=== PATIENT | male | born 1955 | race Caucasian/White ===

== ENCOUNTER 2020-02-21 11:30 | Inpatient (IN) | payer MEDICARE, OTHER ==
[2020-02-21 13:13] VITALS: BMI 25.8
[2020-02-22] MEDS ORDERED: Heparin 1,000 UNITS/ML VIAL ONE (09:01)
[2020-02-22] MEDS ORDERED: HYDROcodone/Acetaminophen 10/325 mg Tablet PO PRN (09:55)
[2020-02-22] MEDS ORDERED: Phenylephrine 10 MG/ML VIAL ONE (10:06)
[2020-02-22] MEDS ORDERED: Fentanyl 100 MCG/2 ML VIAL ONE ×4 (10:06→12:15)
[2020-02-22] MEDS ORDERED: Sodium Chloride 0.9% 100 ML ONE (11:20)
[2020-02-22] MEDS ORDERED: Piperacillin/Tazobactam 3.375 GM VIAL ONE (11:20)
[2020-02-22] MEDS ORDERED: Ondansetron HCl/PF 4 MG/2 ML Vial IVP PRN (11:22)
[2020-02-22] MEDS ORDERED: Promethazine HCl 25 MG/ML VIAL SLOW IVP PRN (11:22)
[2020-02-22] MEDS ORDERED: Promethazine HCl 25 MG/ML VIAL IM PRN (11:22)
[2020-02-22] MEDS ORDERED: Promethazine HCl 25 MG/ML VIAL ONE (11:24)
--- NOTE | 2020-02-22 12:58 | OP ---
DATE OF PROCEDURE: 02/22/2020 PREOPERATIVE DIAGNOSIS: Right knee septic arthritis. POSTOPERATIVE DIAGNOSIS: Right knee septic arthritis. PROCEDURE PERFORMED: Lateral parapatellar arthrotomy with irrigation, debridement and open packing. SURGEON: Erasmo Sutherland MD PRODUCTION CONTROL EXPERT: Abhilash Irby PA-C ANESTHESIA: General via LMA. TOURNIQUET TIME: 10 minutes at 300 mmHg. FINDINGS: Purulent opaque fluid with a negative string sign, aspirated with approximately 50 more mL, removed via arthrotomy and purulent drainage, a maroon-colored aspirate. INDICATIONS FOR PROCEDURE: Mark is a 64-year-old male, who was seen in multiple emergency rooms within the last week or so for right knee pain and fever. He was seen in the clinic yesterday by Dr. Sutherland and an arthrocentesis was performed, which demonstrated purulent material and an aspirate highly suspicious of septic arthritis. Therefore, he was admitted this morning n.p.o. for a formal arthrotomy, irrigation and debridement. His aspirate demonstrated nearly 50,000 white blood cells. The patient has a history of diabetes and illicit drug abuse. DESCRIPTION OF PROCEDURE: After informed consent was obtained in the preoperative holding area, the patient was taken to the operative suite where general anesthesia was induced, and LMA was placed and secured. The right knee was then positioned appropriately in a supine position. The right lower extremity was then prepped and draped in usual sterile fashion. A well-padded tourniquet was placed over the right proximal thigh. The extremity was not exsanguinated, but tourniquet was raised, where it remained for the next 10 minutes. After this was done, a medial skin incision was placed directly over the patella extending approximately a fingerbreadth above and below. We undermined laterally encountering the capsule. We then performed a lateral parapatellar arthrotomy and encountered significant maroon-colored purulent fluid, which was under pressure. It was examined grossly to have a negative string sign with multiple clumps noted to extravasate. We irrigated with pulsatile lavage, 3 L total, while ranging the knee. Once this was completed, the knee was packed open with Kerlix and a wet-to-dry dressing was placed and secured with an Tenzin bandage. Tourniquet was dropped. Local bleeding was controlled with electrocautery. The wound was packed open. Sterile dressing was applied. The procedure was terminated without any complication. The patient was awakened in the operative suite, LMA was removed, taken to recovery room in stable condition. We will consult with Infectious Disease and start preop antibiotics in the form of vancomycin and Zosyn and revisit the patient in the morning. Job ID: [id number]
[2020-02-22] MEDS ORDERED: Ondansetron PF 4 MG/2 ML Vial ONE (13:17)
[2020-02-22] MEDS ORDERED: Lidocaine 1% PF 5 ML VIAL ONE (13:17)
[2020-02-22] MEDS ORDERED: PROPOFOL 200 MG/20 ML VIAL ONE (13:17)
[2020-02-22] MEDS ORDERED: HumaLOG 300 UNITS/3 ML VIAL SC PRN (13:49)
[2020-02-22] MEDS ORDERED: Dextrose 5% in Water 1,000 ML IV PRN (13:49)
[2020-02-22] MEDS ORDERED: Dextrose 50% Abboject 50 ML SYRINGE SLOW IVP PRN (13:49)
[2020-02-22 14:18] LABS: #Basophils 0.1 thou/uL (0.0-0.2); #Eosinphils 0.1 thou/uL (0.0-0.7); #Lymphocytes 2.1 thou/uL (1.20-3.40); #Monocytes 0.5 thou/uL (0.11-0.59); #Neutrophils 3.5 thou/uL (1.40-6.50); %Basophils 1.1 % (0.0-1.0); %Lymphocytes 32.9 % (21.0-51.0); %Monocytes 7.9 % (0.0-10.0); %Neutrophils 56.1 % (42.0-75.0); Hemoglobin 11.1 g/dL (14.0-18.0); Mean Corpuscular HGB CONC 33.2 g/dL (32.0-36.0); Mean Corpuscular Hemoglobin 31.9 pg (27.0-31.0); Mean Platelet Volume 7.3 fL (7.4-10.4); Platelet Count 319 thou/uL (130-400); RBC Distribution Width 12.2 % (11.5-14.5); Red Blood Cell (RBC) Count 3.48 mill/uL (4.70-6.10); White Blood Cell (WBC) Count 6.3 thou/uL (4.8-10.8)
[2020-02-22 14:37] LABS: Anion Gap 10 mmol/L (10-20); BUN (Urea Nitrogen) 18 mg/dL (8.4-25.7); CRP (Inflammatory) 11.76 mg/dL (= or < 0.5); Calc. Creatinine Clearance 97 mL/min (70-130); Calcium 8.1 mg/dL (7.8-10.44); Carbon Dioxide 23 mmol/L (23-31); Chloride 104 mmol/L (98-107); Estimated GFR-MDRD 86; Glucose 127 mg/dL (80-115); Potassium 4.4 mmol/L (3.5-5.1); Sodium 133 mmol/L (136-145)
[2020-02-22] MEDS: HYDROcodone/Acetaminophen 10/325 mg Tablet PO PRN ×3 (14:44→22:00)
[2020-02-22] MEDS ORDERED: cloNIDine 0.1 MG TAB PO PRN (15:37)
[2020-02-22] MEDS ORDERED: hydrALAZINE 20 MG/ML VIAL SLOW IVP PRN (15:37)
[2020-02-22] MEDS: Vancomycin HCl 1.25 GM in Sodium Chloride 0.9% 250 ML 250 ML IVPB SCH (16:24)
[2020-02-22] MEDS ORDERED: Piperacillin/Tazobactam 3.375 GM in Sodium Chloride 0.9% 100 ML IVPB SCH (18:00)
[2020-02-22] MEDS: Sodium Chloride 0.9% 1,000 ML IV SCH ×2 (18:12→22:57)
[2020-02-22 18:15] LABS: Syphilis Antibody Nonreactive (Nonreactive); Syphilis Antibody Index 0.38 S/CO (<1.00 Non-Reactive)
[2020-02-22] MEDS: Cefepime 2 GM in Sodium Chloride 0.9% 100 ML IVPB SCH (18:26)
[2020-02-22 18:35] LABS: Hep B Surf AB Non-Reactive (NonReactive)
[2020-02-22 18:37] LABS: HIV (1/2) Antibody/Antigen Non-Reactive (NonReactive); HIV 1/2 INDEX 0.13 S/CO (<1.00)
[2020-02-22 18:45] LABS: Hep C IgG Ab Reflex HepC Qnt (NonReactive); Hep C Index 12.18 S/CO (0-0.79)
[2020-02-22 19:27] LABS: HBSAg Index 732.89 S/CO (0-0.99)
[2020-02-22 19:37] LABS: Hep B Surf Ag Reflx Confirmation S/CO (NonReactive)
[2020-02-22] MEDS: Metoprolol Tartrate 25 MG TAB PO SCH (22:00)
--- NOTE | 2020-02-23 00:03 | CON ---
DATE OF CONSULTATION: REASON FOR CONSULTATION: Septic arthritis, right knee. HISTORY OF PRESENT ILLNESS: A 64-year-old, who has a history of type 2 diabetes , heroin and methamphetamine addiction, hyperlipidemia, and hypertension as well as epilepsy, who lives with friends in [place] and developed rapid onset of pain in the right knee over the past week. He went to the emergency room and then eventually saw his primary doctor and was admitted to [facility]. Had been using heroin two days ago and he uses by injecting in the subcutaneous tissues but does not do intravenous drugs reportedly, he used it in the past though. Here, his BP was 150/78, pulse 76, respirations 18, O2 saturation 100%, and temperature 97.4. On initial exam, he did not appear to be in distress. The only pertinent findings were mild to moderate swelling of the right knee, but no erythema noted. He had an aspiration of the knee, which showed purulent fluid and underwent arthrotomy with irrigation and open packing. Of note, the patient had an arthrocentesis by Dr. Sutherland the day before. Currently, he is in the immediate postop period and is having moderate to severe pain in the right knee. No headaches, visual symptoms , sore throat, odynophagia, or dysphagia. No back pain. No shortness of breath or cough. No sputum production or abdominal pain. Voiding without difficulty in the urinal. Peripheral IV access. PAST MEDICAL HISTORY: Includes hypertension, type 2 diabetes, heroin and methamphetamine addiction, seizure activity, and coronary artery disease with prior stents. SOCIAL HISTORY: As above. Lives with friends in [place]. It does not look like he has a stable housing situation. He has family members including a daughter and a brother reportedly brought him to the hospital. CURRENT MEDICATIONS: 1. [place]. 2. [place]ap[place]. 3. Glucotrol. 4. Insulin. 5. Zestril. 6. Lopressor. 7. Zosyn. 8. Vancomycin. FAMILY HISTORY: Noncontributory. PHYSICAL EXAMINATION: VITAL SIGNS: Temperature 98.1, blood pressure 170/71, pulse 74, respirations 18 , and O2 saturation 100% on room air. SKIN: Shows right knee arthrotomy site. Peripheral IV access. No lymphadenopathy. HEENT: Ocular movements conjugate. Sclerae white. Conjunctivae normal. Oral cavity with a few remaining teeth with marked dental decay and gum resorption. Oral mucosa otherwise normal. NECK: Supple. No jugular vein distention. LUNGS: Symmetric clear breath sounds. HEART: S1 and S2 without murmurs. No S3 or S4. ABDOMEN: Soft, not distended or tender. No ascites. No bladder distention. EXTREMITIES: No other joint inflammatory process noted. Pulses are 1+ in dorsalis pedis. No edema. LABORATORY DATA: White cell count 6.3, hemoglobin 11, platelets 319 with 56% neutrophils. Sodium 133, creatinine 0.89. CRP 11.76. The synovial fluid with almost 48,000 wbc's with 88% neutrophils, no crystals were noted in the specimen. COVID was checked and was nondetected. Chest x-ray with no acute lung process noticeable. Knee films with joint effusion, but no dislocation of bone destruction. ASSESSMENT AND PLAN: Coronary artery disease, type 2 diabetes, hyperlipidemia, polysubstance abuse including skin popping, prior IV drug use, and now inflammatory process right knee, presumably infectious in nature. Hematogenous route is the most likely scenario. Endocarditis needs to be considered and we will evaluate initially with a transthoracic echo. I do not have blood culture submitted here they have ordered some, I do not see any blood cultures ordered. We will go ahead and order two sets of blood cultures, 2D echocardiogram, and switch him to Rocephin and/or cefepime plus continue vancomycin. Await on culture results and then check hepatitis C and HIV as well and RPR and hepatitis B. Job ID: [id number] MTDD
[2020-02-23] MEDS: Vancomycin HCl 1.25 GM in Sodium Chloride 0.9% 250 ML 250 ML IVPB SCH ×2 (00:26→11:59)
[2020-02-23] MEDS: Sodium Chloride 0.9% 1,000 ML IV SCH ×3 (00:26→21:36)
[2020-02-23] MEDS: HYDROcodone/Acetaminophen 10/325 mg Tablet PO PRN ×6 (03:08→23:44)
[2020-02-23 05:50] LABS: Hemoglobin A1c 6.6 % (4.0-6.0)
[2020-02-23] MEDS: Cefepime 2 GM in Sodium Chloride 0.9% 100 ML IVPB SCH (06:32)
[2020-02-23] MEDS: glipiZIDE 5 MG TAB PO SCH (06:33)
[2020-02-23] MEDS: Metoprolol Tartrate 25 MG TAB PO SCH ×2 (08:20→21:54)
[2020-02-23] MEDS: Lisinopril 5 MG TAB PO SCH (08:20)
--- NOTE | 2020-02-23 11:01 | PRG ---
DATE OF SERVICE: 02/23/2020 SUBJECTIVE: Mark is a 64-year-old male, who is postop day 1 from an irrigation, debridement and arthrotomy of the right knee for septic arthritis of the knee. He is feeling better today. His pain is improved. No organisms were identified in his knee tissue at this point. OBJECTIVE: VITAL SIGNS: Temperature 98.4, pulse 64, respiratory rate 16 and unlabored, O2 saturations 95% on room air, and blood pressure 144/67. GENERAL: He is alert and oriented to person, place, time, and situation, responsive and appropriate with examiner. SKIN: His incision has strikethrough as expected for an arthrotomy. IMPRESSION: This 64-year-old male is postop day 1 for a right knee arthrotomy, irrigation, and debridement. PLAN: Continue antibiotics. Dr. Long will make antibiotic changes and recommendation. Consider PICC line and continue to follow. The patient may be weightbearing as tolerated. Job ID: [id number]
[2020-02-23] MEDS: MEROPENEM 1 GM/50 ML 1 GM in Premix Bag 1 BAG IVPB SCH ×2 (13:51→21:38)
--- NOTE | 2020-02-23 19:27 | PDOC.HOSPP ---
- Subjective Encounter Date: 02/23/20 Encounter Time: 10:30 Subjective: Patient seen and examined for med mngt. No fever or chills. Pain controlled. No new complaints. No overnight events - Objective Vital Signs & Weight: Vital Signs (12 hours) Temp Pulse Resp BP BP Pulse Ox 02/23/20 15:17 98.2 F 64 16 120/66 98 02/23/20 11:10 97.7 F 59 L 18 138/77 99 02/23/20 08:20 64 144/67 H 99 02/23/20 07:30 98.4 F 64 16 144/67 H 99 Weight Admit Weight 180 lb Weight 180 lb I&O: 02/22/20 02/23/20 02/24/20 06:59 06:59 06:59 Intake Total 1300 2050 Output Total 1700 1100 Balance -400 950 Result Diagrams: 02/22/20 13:40 02/22/20 13:40 Additional Labs: Accuchecks 02/23/20 02/23/20 02/23/20 15:22 11:14 05:28 POC Glucose 104 74 107 02/22/20 20:43 POC Glucose 145 H Radiology Reviewed by me: Yes (CXR - neg) Hospitalist ROS - Review of Systems Respiratory: denies: cough, dry, shortness of breath, hemoptysis, SOB with excertion, pleuritic pain, sputum, wheezing, other Cardiovascular: denies: chest pain, palpitations, orthopnea, paroxysmal noc. dyspnea, edema, light headedness, other - Medication Medications: Active Medications Generic Name Dose Route Start Last Admin Trade Name Freq PRN Reason Stop Dose Admin Hydrocodone Bitart/Acetaminophen 2 tab 02/22/20 09:55 02/23/20 19:18 [place] 10/325 PO 2 tab Q4H PRN Administration Severe Pain (7-10) Glipizide 5 mg 02/23/20 07:30 02/23/20 06:33 Glucotrol PO 5 mg DAILY-AC TERRIE Administration Hydralazine HCl 10 mg 02/22/20 15:37 02/22/20 17:16 Apresoline SLOW IVP 10 mg Q4H PRN Administration sbp>170 Sodium Chloride 1,000 mls @ 100 mls/hr 02/22/20 10:00 02/23/20 15:11 Normal Saline 0.9% IV 1,000 mls .Q10H TERRIE Administration Vancomycin HCl 1.25 gm/ Sodium 250 mls @ 166.667 mls/hr 02/22/20 13:00 11:59 Chloride IVPB 250 mls 0100,1300 TERRIE Administration Meropenem 1 gm/ Device 50 mls @ 200 mls/hr 02/23/20 14:00 02/23/20 13:51 IVPB 50 mls Q8HR TERRIE Administration Lisinopril 5 mg 02/23/20 09:00 02/23/20 08:20 Zestril PO 5 mg DAILY TERRIE Administration Metoprolol Tartrate 25 mg 02/22/20 21:00 02/23/20 08:20 Lopressor PO 25 mg BID TERRIE Administration - Exam General Appearance: NAD Neck: supple, no JVD Heart: RRR, no gallops Respiratory: no wheezes, no ronchi Gastrointestinal: non-tender, non-distended, normal bowel sounds Extremities: no cyanosis, no clubbing Hosp A/P - Plan DVT proph w/SCDs Septic arthritis of Rt knee Chronic Heroin abuse HTN HLD Recent E coli UTI - resistant to quinolones DM2 Med noncompliant Hep C antibody positive - PCR pending PLAN: s/p I&D Cont IV Vanc Change IV Cefepime to Meropenem based on recent urine cultures Monitor Vancomycin level Cont Glipizide Cont Metoprolol Await Echo Counselled on lifestyle mod Cont wound care AM labs Reduce IVF when tolerating PO well
[2020-02-24] MEDS: Vancomycin HCl 1.25 GM in Sodium Chloride 0.9% 250 ML 250 ML IVPB SCH ×2 (00:20→13:53)
[2020-02-24] MEDS: Sodium Chloride 0.9% 1,000 ML IV SCH ×2 (03:19→20:34)
[2020-02-24] MEDS: HYDROcodone/Acetaminophen 10/325 mg Tablet PO PRN ×4 (03:20→19:13)
[2020-02-24 06:19] LABS: #Eosinphils 0.3 thou/uL (0.0-0.7); #Lymphocytes 1.8 thou/uL (1.20-3.40); #Monocytes 0.4 thou/uL (0.11-0.59); #Neutrophils 2.6 thou/uL (1.40-6.50); %Basophils 0.7 % (0.0-1.0); %Eosinophils 5.1 % (0.0-10.0); %Monocytes 8.6 % (0.0-10.0); %Neutrophils 50.7 % (42.0-75.0); Hemoglobin 10.4 g/dL (14.0-18.0); Mean Corpuscular HGB CONC 33.7 g/dL (32.0-36.0); Mean Corpuscular Hemoglobin 32.2 pg (27.0-31.0); Mean Corpuscular Volume 95.4 fL (78.0-98.0); Mean Platelet Volume 6.5 fL (7.4-10.4); Platelet Count 292 thou/uL (130-400); RBC Distribution Width 11.9 % (11.5-14.5); Red Blood Cell (RBC) Count 3.23 mill/uL (4.70-6.10); White Blood Cell (WBC) Count 5.1 thou/uL (4.8-10.8)
[2020-02-24] MEDS: glipiZIDE 5 MG TAB PO SCH (06:22)
[2020-02-24] MEDS: MEROPENEM 1 GM/50 ML 1 GM in Premix Bag 1 BAG IVPB SCH ×3 (06:22→21:07)
[2020-02-24 06:53] LABS: ALT (SGPT) 21 U/L (8-55); AST (SGOT) 42 U/L (5-34); Alkaline Phosphatase 121 U/L (40-110); Anion Gap 8 mmol/L (10-20); BUN (Urea Nitrogen) 16 mg/dL (8.4-25.7); Bilirubin, Total 0.3 mg/dL (0.2-1.2); Calc. Creatinine Clearance 100 mL/min (70-130); Calcium 7.6 mg/dL (7.8-10.44); Carbon Dioxide 23 mmol/L (23-31); Chloride 106 mmol/L (98-107); Estimated GFR-MDRD 90; Globulin 4.6 g/dL (2.4-3.5); Glucose 123 mg/dL (80-115); Potassium 4.1 mmol/L (3.5-5.1); Protein, Total 6.6 g/dL (5.8-8.1); Sodium 133 mmol/L (136-145)
[2020-02-24] MEDS: Lisinopril 5 MG TAB PO SCH (08:52)
[2020-02-24] MEDS: Metoprolol Tartrate 25 MG TAB PO SCH ×2 (08:52→20:36)
--- NOTE | 2020-02-24 17:29 | PDOC.HOSPP ---
- Subjective Encounter Date: 02/24/20 Encounter Time: 13:00 Subjective: F/u: septic arthritis Patient has no complaints, reports right knee is very painful. He is not able to walk just yet. He states the pain medicines are helping but the duration doesn't last as long When asked about patient's hepatitis C, he states he denies. He states he always uses clean needles. States he has had multiple negative hep C tests before - Objective Vital Signs & Weight: Vital Signs (12 hours) Temp Pulse Resp BP Pulse Ox 02/24/20 15:35 97.7 F 68 16 125/68 98 02/24/20 10:32 97.7 F 65 16 113/67 99 02/24/20 07:35 98.1 F 67 16 154/77 H 95 Weight Admit Weight 180 lb Weight 180 lb I&O: 02/23/20 02/24/20 02/25/20 06:59 06:59 06:59 Intake Total 1300 3725 Output Total 1700 2875 Balance -400 850 Result Diagrams: 02/24/20 05:32 02/24/20 05:32 Additional Labs: Accuchecks 02/24/20 02/24/20 02/24/20 15:52 10:39 05:45 POC Glucose 140 H 77 137 H 02/23/20 21:11 POC Glucose 125 H Hospitalist ROS - Review of Systems Constitutional: denies: fever, chills - Medication Medications: Active Medications Generic Name Dose Route Start Last Admin Trade Name Freq PRN Reason Stop Dose Admin Hydrocodone Bitart/Acetaminophen 2 tab 02/22/20 09:55 02/24/20 13:48 [place] 10/325 PO 2 tab Q4H PRN Administration Severe Pain (7-10) Glipizide 5 mg 02/23/20 07:30 02/24/20 06:22 Glucotrol PO 5 mg DAILY-AC TERRIE Administration Hydralazine HCl 10 mg 02/22/20 15:37 02/22/20 17:16 Apresoline SLOW IVP 10 mg Q4H PRN Administration sbp>170 Vancomycin HCl 1.25 gm/ Sodium 250 mls @ 166.667 mls/hr 02/22/20 13:00 13:53 Chloride IVPB 250 mls 0100,1300 TERRIE Administration Meropenem 1 gm/ Device 50 mls @ 200 mls/hr 02/23/20 14:00 02/24/20 13:48 IVPB 50 mls Q8HR TERRIE Administration Sodium Chloride 1,000 mls @ 75 mls/hr 02/23/20 19:25 02/24/20 03:19 Normal Saline 0.9% IV 1,000 mls .[id number] TERRIE Administration Lisinopril 5 mg 02/23/20 09:00 02/24/20 08:52 Zestril PO 5 mg DAILY TERRIE Administration Metoprolol Tartrate 25 mg 02/22/20 21:00 02/24/20 08:52 Lopressor PO 25 mg BID TERRIE Administration - Exam General Appearance: NAD, awake alert Eye: PERRL, anicteric sclera ENT: normocephalic atraumatic, no oropharyngeal lesions Neck: supple, no JVD Heart: RRR, no murmur, no gallops, no rubs Respiratory: CTAB, no wheezes, no rales, no ronchi Gastrointestinal: soft, non-tender, non-distended, normal bowel sounds Extremities: no cyanosis Extremities - other findings: right knee edematous, very tender to palpation Skin: normal turgor, no lesions, no rashes Neurological: cranial nerve grossly intact, normal sensation to touch, no focal deficits, no new deficit Musculoskeletal: normal tone, no muscle wasting Musculoskeletal - other findings: decreased strength right knee Psychiatric: normal affect, normal behavior, A&O x 3 Hosp A/P - Plan This is 64 year old male admitted for septic arthritis Septic arthritis right knee - s/p I and D, blood cultures - on vancomycin and meropenem. Will discuss with ID regarding de-escalation - on hydrocodone every 4 hours prn - will likely need rehab History of heroin abuse - last use 3 weeks ago - HIV negative, hep B and Hep C positive #Hep B positive #Hep C - will check hep C RNA - need outpatient GI referral Hyponatremia - sodium 133 Anemia - Hb 10, stable Transaminitis - ASt 42, downtrending
[2020-02-25] MEDS: HYDROcodone/Acetaminophen 10/325 mg Tablet PO PRN ×5 (00:15→21:13)
[2020-02-25] MEDS: Vancomycin HCl 1.25 GM in Sodium Chloride 0.9% 250 ML 250 ML IVPB SCH ×2 (00:19→14:24)
[2020-02-25] MEDS: MEROPENEM 1 GM/50 ML 1 GM in Premix Bag 1 BAG IVPB SCH ×3 (05:32→21:13)
[2020-02-25] MEDS: glipiZIDE 5 MG TAB PO SCH (06:40)
[2020-02-25] MEDS: Lisinopril 5 MG TAB PO SCH (08:57)
[2020-02-25] MEDS: Metoprolol Tartrate 25 MG TAB PO SCH ×2 (08:58→21:13)
[2020-02-25 10:03] LABS: ALT (SGPT) 27 U/L (8-55); AST (SGOT) 55 U/L (5-34); Albumin 2.1 g/dL (3.4-4.8); Alkaline Phosphatase 127 U/L (40-110); Bilirubin, Direct 0.2 mg/dL (0.1-0.3); Bilirubin, Total 0.2 mg/dL (0.2-1.2); Protein, Total 6.7 g/dL (5.8-8.1)
[2020-02-25 10:04] LABS: Anion Gap 8 mmol/L (10-20); BUN (Urea Nitrogen) 14 mg/dL (8.4-25.7); Calc. Creatinine Clearance 108 mL/min (70-130); Calcium 7.9 mg/dL (7.8-10.44); Carbon Dioxide 24 mmol/L (23-31); Chloride 106 mmol/L (98-107); Estimated GFR-MDRD Greater than 90; Glucose 68 mg/dL (80-115); Potassium 3.9 mmol/L (3.5-5.1); Sodium 134 mmol/L (136-145)
[2020-02-25] MEDS: Sodium Chloride 0.9% 1,000 ML IV SCH (13:05)
--- NOTE | 2020-02-25 14:54 | PRG ---
DATE OF SERVICE: 02/25/2020 SUBJECTIVE: Mr. Faith complains of pain in the right knee, which is moderate. No respiratory symptoms or abdominal pain. No diarrhea. OBJECTIVE: VITAL SIGNS: T-max 98.5, BP 140/75, pulse 68, respirations 18, and O2 saturation 100% on room air. GENERAL: The patient does not appear in distress. LUNGS: Clear. HEART: S1 and S2, regular rate. ABDOMEN: Soft, not distended. EXTREMITIES: The knee is dressed at the moment. LABORATORY DATA: White cell count 5.1, hemoglobin 10.4, platelets 292. Creatinine 0.8. AST 55, ALT 27, alkaline phosphatase 127, albumin 2.1. Hepatitis surface antigen positive. Hepatitis C antibody positive. Microbiology: The patient had E coli in the urine, which is an ESBL phenotype organism. The knee tissue cultures are negative thus far as well as the fluid cultures from the knee. We have submitted Neisseria gonorrhoeae PCR from urine, but that is pending. Syphilis antibody was nonreactive. ASSESSMENT AND DISCUSSION: Coronary artery disease; type 2 diabetes; hyperlipidemia; polysubstance abuse including skin popping; prior IV drug use; inflammatory process of right knee, presumably infectious in nature with hematogenous route, the most likely scenario. The transthoracic echocardiogram with an ejection fraction 55% and moderate mitral regurgitation. The aortic valve was found to be sclerotic. The urinary findings are being treated with meropenem. I do not think he needs to have treatment with meropenem for more than 3 days assuming cystitis and we will probably, if the cultures in the knee remain negative, switch him to IV Rocephin for continuation of therapy. The Neisseria PCR is pending. Probably duration of therapy will be around 4 weeks approximately. Job ID: [id number]
--- NOTE | 2020-02-25 16:04 | PDOC.HOSPP ---
- Subjective Encounter Date: 02/25/20 Encounter Time: 10:30 Subjective: The patient states his knee is still very sore. He had a dressing change done today and is in a lot of pain from that. Discussed + Hep B and hep C results with patient and daughter - Objective Vital Signs & Weight: Vital Signs (12 hours) Temp Pulse Resp BP BP Pulse Ox 02/25/20 15:50 98.6 F 65 18 134/71 100 02/25/20 11:15 98.8 F 63 18 120/66 98 02/25/20 08:57 68 144/75 H 02/25/20 08:55 100 02/25/20 07:00 98.4 F 68 18 144/75 H 100 Weight Admit Weight 180 lb Weight 180 lb I&O: 02/24/20 02/25/20 02/26/20 06:59 06:59 06:59 Intake Total 3725 4030 500 Output Total 2875 3100 Balance 850 930 500 Result Diagrams: 02/24/20 05:32 02/25/20 09:35 Additional Labs: Accuchecks 02/25/20 02/25/20 02/25/20 13:08 11:19 05:23 POC Glucose 128 H 69 L 101 02/24/20 20:18 POC Glucose 150 H Hospitalist ROS - Review of Systems Constitutional: denies: fever, chills - Medication Medications: Active Medications Generic Name Dose Route Start Last Admin Trade Name Freq PRN Reason Stop Dose Admin Hydrocodone Bitart/Acetaminophen 1 tab 02/22/20 09:55 02/25/20 08:58 [place] 10/325 PO 1 tab Q4H PRN Administration Moderate Pain (4-6) Hydrocodone Bitart/Acetaminophen 2 tab 02/22/20 09:55 02/25/20 13:06 [place] 10/325 PO 2 tab Q4H PRN Administration Severe Pain (7-10) Hydralazine HCl 10 mg 02/22/20 15:37 02/22/20 17:16 Apresoline SLOW IVP 10 mg Q4H PRN Administration sbp>170 Vancomycin HCl 1.25 gm/ Sodium 250 mls @ 166.667 mls/hr 02/22/20 13:00 14:24 Chloride IVPB 250 mls 0100,1300 TERRIE Administration Meropenem 1 gm/ Device 50 mls @ 200 mls/hr 02/23/20 14:00 02/25/20 13:05 IVPB 50 mls Q8HR TERRIE Administration Sodium Chloride 1,000 mls @ 75 mls/hr 02/23/20 19:25 02/25/20 13:05 Normal Saline 0.9% IV 1,000 mls .[id number] TERRIE Administration Lisinopril 5 mg 02/23/20 09:00 02/25/20 08:57 Zestril PO 5 mg DAILY TERRIE Administration Metoprolol Tartrate 25 mg 02/22/20 21:00 02/25/20 08:58 Lopressor PO 25 mg BID TERRIE Administration - Exam General Appearance: NAD, awake alert Eye: PERRL, anicteric sclera ENT: normocephalic atraumatic, no oropharyngeal lesions Neck: no JVD Heart: RRR, no murmur, no gallops, no rubs Respiratory: CTAB, no wheezes, no rales, no ronchi Gastrointestinal: soft, non-tender, non-distended, no palpable masses Extremities: no cyanosis, no clubbing Extremities - other findings: Right knee swelling, tenderness Neurological: cranial nerve grossly intact, normal sensation to touch, no focal deficits, no new deficit Hosp A/P - Plan This is 64 year old male admitted for septic arthritis Septic arthritis right knee - s/p I and D, blood cultures - on vancomycin and meropenem. Per ID, can switch to ceftriaxone if culture results negative, appreciate recs - on hydrocodone every 4 hours prn - will likely need rehab History of heroin abuse - last use 3 weeks ago - HIV negative, hep B and Hep C positive #Hep B positive #Hep C positive #Transaminitis - hep C RNA pending, will need outpatient treatment - will check hep Be antigen levels and HBV DNA to see if patient meets criteria for treatment - AST is downtrending Hypoglycemia Type II Diabetes - blood sugar 69, will reduce glipizide dose to 2.5 mg daily. A1C is 6.6 Hyponatremia - sodium 134, stable Anemia - Hb 10, stable
[2020-02-25] MEDS ORDERED: cefTRIAXone Sodium 1,000 MG in Syringe 0 ML IVPB SCH (22:45)
[2020-02-25] MEDS: cefTRIAXone\\ROCEPHIN 1 GM in Sodium Chloride 0.9% 100 ML IVPB SCH (23:29)
[2020-02-26] MEDS: Sodium Chloride 0.9% 1,000 ML IV SCH (00:26)
[2020-02-26] MEDS: Vancomycin HCl 1.25 GM in Sodium Chloride 0.9% 250 ML 250 ML IVPB SCH ×2 (01:24→12:05)
[2020-02-26] MEDS: HYDROcodone/Acetaminophen 10/325 mg Tablet PO PRN ×5 (03:45→19:38)
[2020-02-26 05:14] LABS: Hemoglobin 10.5 g/dL (14.0-18.0)
[2020-02-26 05:32] LABS: Potassium 4.4 mmol/L (3.5-5.1); Sodium 133 mmol/L (136-145)
[2020-02-26 05:39] LABS: Calc. Creatinine Clearance 105 mL/min (70-130); Estimated GFR-MDRD Greater than 90
[2020-02-26] MEDS: Lisinopril 5 MG TAB PO SCH (07:59)
[2020-02-26] MEDS: Metoprolol Tartrate 25 MG TAB PO SCH ×2 (08:00→19:38)
[2020-02-26] MEDS: HumaLOG 300 UNITS/3 ML VIAL SC PRN ×2 (12:05→15:59)
--- NOTE | 2020-02-26 13:57 | PRG ---
DATE OF SERVICE: 02/26/2020 SUBJECTIVE: Mark is a 64-year-old male, who is a postoperative day 4 from a right knee lateral parapatellar arthrotomy with irrigation and debridement for septic arthritis. Cultures have failed to demonstrate an organism, but he did have an uncomplicated cystitis with I believe E coli. The patient is going down for his PICC line presently to receive long-term antibiotics. He ambulated approximately 20 feet on 2 separate occasions yesterday, but he has never run a white count since admission. OBJECTIVE: VITAL SIGNS: Temperature 98; pulse 70; respiratory rate is 18 and unlabored; O2 saturation is 96% on room air. GENERAL: He is alert, oriented, responsive, and appropriate with examiner. EXTREMITIES: Scant strikethrough is noted on his dressing. He is neurovascularly intact in the right lower extremity. IMPRESSION: Septic arthritis, right [place] knee. Organism unclear. Suspect possible Escherichia coli. PLAN: We will get his PICC line placed and we are discussing discharge options, but also continue IV antibiotics. Job ID: [id number]
--- NOTE | 2020-02-26 14:47 | SPC ---
PICC left upper extremity sonographic guided HISTORY: Osteomyelitis. FINDINGS: After explaining the procedure and answering all questions, the left upper extremity was pr epped and draped in usual sterile fashion. Sterile technique, buffered local anesthesia, sonographic guidance, and a 22-gauge needle were used to carefully access the left brachial vein. The guidewire initially traveled through a small peripheral branch, so that a small amount of contrast was injected and wire redirected for better positioning. Standard technique was used to place the tip of a 5 [place] single lumen PICC so that the tip lies at the level of the cavoatrial junction. Catheter was flushed and secured externally. Patient tolerated the procedure well and was returned in unchanged condition. Fluoroscopy time 1.1 minute. IMPRESSION : Left upper extremity PICC is ready for use.
--- NOTE | 2020-02-26 15:25 | PDOC.HOSPP ---
- Subjective Encounter Date: 02/26/20 Encounter Time: 11:00 Subjective: THe patient still has moderate amount of knee pain with dressing changes. He states pain medicine reduces his pain by about 30%. He is awaiting to get his PICC Line The patient's daughter wants him to go to [facility] bed, but patient states he got in an argument with his daughter and not sure if he wants to go there - Objective Vital Signs & Weight: Vital Signs (12 hours) Temp Pulse Resp BP BP Pulse Ox 02/26/20 15:12 97.8 F 65 18 127/72 97 02/26/20 11:02 98.0 F 70 18 123/65 96 02/26/20 07:59 62 160/70 H 02/26/20 07:25 98.3 F 62 18 160/77 H 97 02/26/20 03:44 98.6 F 65 16 165/79 H 97 Weight Admit Weight 180 lb Weight 180 lb I&O: 02/25/20 02/26/20 02/27/20 06:59 06:59 06:59 Intake Total 4030 3155 Output Total 3100 4250 Balance 930 -1095 Result Diagrams: 02/26/20 04:49 02/26/20 04:49 Additional Labs: Accuchecks 02/26/20 02/26/20 02/25/20 12:03 05:14 19:45 POC Glucose 153 H 95 145 H 02/25/20 16:18 POC Glucose 117 H Hospitalist ROS - Review of Systems Constitutional: denies: fever, chills - Medication Medications: Active Medications Generic Name Dose Route Start Last Admin Trade Name Freq PRN Reason Stop Dose Admin Hydrocodone Bitart/Acetaminophen 1 tab 02/22/20 09:55 02/25/20 08:58 Kouts 10/325 PO 1 tab Q4H PRN Administration Moderate Pain (4-6) Hydrocodone Bitart/Acetaminophen 2 tab 02/22/20 09:55 02/26/20 12:05 Kouts 10/325 PO 2 tab Q4H PRN Administration Severe Pain (7-10) Glipizide 2.5 mg 02/26/20 08:00 02/26/20 07:59 Glucotrol Xl PO 2.5 mg QAM-WM TERRIE Administration Hydralazine HCl 10 mg 02/22/20 15:37 02/22/20 17:16 Apresoline SLOW IVP 10 mg Q4H PRN Administration sbp>170 Vancomycin HCl 1.25 gm/ Sodium 250 mls @ 166.667 mls/hr 02/22/20 13:00 12:05 Chloride IVPB 250 mls 0100,1300 TERRIE Administration Ceftriaxone Sodium 1 gm/ 100 mls @ 200 mls/hr 02/25/20 23:59 02/25/20 23:29 Sodium Chloride IVPB 100 mls 2359 TERRIE Administration Insulin Human Lispro 0 units 02/22/20 13:49 02/26/20 12:05 Humalog SC 2 units .MODERATE SLIDING SC PRN Administration Moderate Correctional Scale Lisinopril 5 mg 02/23/20 09:00 02/26/20 07:59 Zestril PO 5 mg DAILY TERRIE Administration Metoprolol Tartrate 25 mg 02/22/20 21:00 02/26/20 08:00 Lopressor PO 25 mg BID TERRIE Administration - Exam General Appearance: NAD, awake alert Eye: anicteric sclera Neck: no JVD Heart: normal peripheral pulses Respiratory: normal chest expansion Gastrointestinal: soft, non-tender, non-distended Extremities - other findings: right knee bandaged. STill with significant tenderness. Pain with extension Skin: normal turgor, no lesions, no rashes Neurological: cranial nerve grossly intact, normal sensation to touch, no focal deficits, no new deficit Hosp A/P - Plan This is 64 year old male admitted for septic arthritis Septic arthritis right knee - s/p I and D, blood cultures - on vancomycin and meropenem. Switched to IV ceftriaxone 02/24. Continue for four weeks. Will need PICC line placement - continue hydrocodone every 4 hours prn - case management consulted for rehab History of heroin abuse - last use 3 weeks ago - HIV negative, hep B and Hep C positive #Hep B positive #Hep C positive #Transaminitis - hep C RNA pending, will need outpatient treatment - will check hep Be antigen levels and HBV DNA to see if patient meets criteria for treatment - AST is downtrending Hypoglycemia Type II Diabetes - continue glipizide dose to 2.5 mg daily. A1C is 6.6 Hyponatremia - sodium 133, stable Anemia - Hb 10, stable Disposition: pending rehab bed, PICC line placement
[2020-02-26] MEDS ORDERED: Iopamidol 300 61% 50 ML VIAL FS ONE (15:51)
--- NOTE | 2020-02-26 16:04 | PDOC.FMACP ---
Advance Care Planning - Problem (1) Palliative care encounter Status: Acute Code(s): Z51.5 - ENCOUNTER FOR PALLIATIVE CARE (2) Septic arthritis of knee, right Status: Acute Code(s): M00.9 - PYOGENIC ARTHRITIS, UNSPECIFIED - Note Participants: patient, palliative care Summary: Advanced Care Planning was discussed. The diagnosis, prognosis and goals of care were discussed. Appropriate forms and documentation to accomplish the goals of care were discussed. All questions were answered. The Palliative Care Team will be engaged to assist with completion of any outstanding forms that are needed. Mr Perdue was provided information in relation to Advance care planning, specifically MPOA and Directive to physician. He was given the opportunity to decline. He provided information in relation to individuals to call to the palliative Care registrar, however is not desiring to designate one person to be MPOA. He has two biological children Alphonse Gonzalezgado [phone] Adin Perdue [phone] He is a and not remarried, we discussed that if he does not designate a MPOA any decision that would need to be made in relation to his care if he is unable to express his wishes would fall to his two children. He states that he would prefer that they make decisions together rather than naming one. Time Spent (mins): 30
[2020-02-26] MEDS: cefTRIAXone\\ROCEPHIN 1 GM in Sodium Chloride 0.9% 100 ML IVPB SCH (22:55)
[2020-02-27] MEDS: HYDROcodone/Acetaminophen 10/325 mg Tablet PO PRN ×6 (00:28→22:34)
[2020-02-27] MEDS: Metoprolol Tartrate 25 MG TAB PO SCH ×2 (07:50→20:54)
[2020-02-27] MEDS: Lisinopril 5 MG TAB PO SCH (07:50)
[2020-02-27] MEDS ORDERED: Ketorolac Tromethamine 30 MG/ML VIAL IVP PRN (09:46)
[2020-02-27] MEDS ORDERED: traMADol HCl 50 MG TAB PO PRN ×2 (09:47)
[2020-02-27] MEDS ORDERED: tiZANidine HCl 4 MG TAB PO PRN (09:49)
[2020-02-27] MEDS: HumaLOG 300 UNITS/3 ML VIAL SC PRN (11:32)
--- NOTE | 2020-02-27 14:09 | PDOC.HOSPP ---
- Subjective Encounter Date: 02/27/20 Encounter Time: 12:45 Subjective: Mr. Perdue is a 64 yo male with septic arthritis of the right knee. He states there is pain on palpation of the right knee and surrounding area. The area around the knee dressing is warm and edematous. He is able to lift his leg off the bed, but this causes pain. He is lethargic but responsive to questions. - Objective Vital Signs & Weight: Vital Signs (12 hours) Temp Pulse Resp BP Pulse Ox 02/27/20 11:15 98.4 F 64 16 137/79 100 02/27/20 07:50 63 02/27/20 07:27 98.6 F 63 18 139/76 98 02/27/20 03:08 98.3 F 65 18 156/78 H 99 Weight Admit Weight 180 lb Weight 180 lb I&O: 02/26/20 02/27/20 02/28/20 06:59 06:59 06:59 Intake Total 3155 2410 Output Total 4250 2100 Balance -1095 310 Result Diagrams: 02/26/20 04:49 02/26/20 04:49 Additional Labs: Accuchecks 02/27/20 02/27/20 02/26/20 11:02 05:06 20:00 POC Glucose 180 H 120 H 226 H 02/26/20 15:49 POC Glucose 210 H Hospitalist ROS - Review of Systems Genitourinary: denies: dysuria, frequency, incontinence, hematuria, retention, other Musculoskeletal: reports: leg pain - Medication Medications: Active Medications Generic Name Dose Route Start Last Admin Trade Name Freq PRN Reason Stop Dose Admin Hydrocodone Bitart/Acetaminophen 1 tab 02/22/20 09:55 02/25/20 08:58 Sutherland 10/325 PO 1 tab Q4H PRN Administration Moderate Pain (4-6) Hydrocodone Bitart/Acetaminophen 2 tab 02/22/20 09:55 02/27/20 13:58 [place]utherland 10/325 PO 2 tab Q4H PRN Administration Severe Pain (7-10) Glipizide 2.5 mg 02/26/20 08:00 02/27/20 07:50 Glucotrol Xl PO 2.5 mg QAM-WM TERRIE Administration Hydralazine HCl 10 mg 02/22/20 15:37 02/22/20 17:16 Apresoline SLOW IVP 10 mg Q4H PRN Administration sbp>170 Ceftriaxone Sodium 1 gm/ 100 mls @ 200 mls/hr 02/25/20 23:59 02/26/20 22:55 Sodium Chloride IVPB 100 mls 2359 TERRIE Administration Insulin Human Lispro 0 units 02/22/20 13:49 02/27/20 11:32 Humalog SC 2 units .MODERATE SLIDING SC PRN Administration Moderate Correctional Scale Insulin Human Lispro 0 units 02/22/20 13:49 02/26/20 21:08 Humalog SC 2 unit .BEDTIME SLIDING SC PRN Administration Bedtime Correctional Scale Lisinopril 5 mg 02/23/20 09:00 02/27/20 07:50 Zestril PO 5 mg DAILY TERRIE Administration Metoprolol Tartrate 25 mg 02/22/20 21:00 02/27/20 07:50 Lopressor PO 25 mg BID TERRIE Administration Sodium Chloride 10 ml 02/26/20 21:00 02/27/20 07:53 Flush - Normal Saline IVF 10 ml Q12HR TERRIE Administration Tramadol HCl 100 mg 02/27/20 09:47 02/27/20 10:04 Ultram PO 100 mg Q4H PRN Administration Moderate Pain (4-6) - Exam General Appearance: NAD, awake alert Eye: PERRL, anicteric sclera ENT: normocephalic atraumatic, no oropharyngeal lesions Neck: no JVD Heart: RRR, no murmur, no gallops Respiratory: CTAB, no wheezes, no rales, no ronchi Gastrointestinal: soft, non-tender, non-distended, normal bowel sounds Extremities: 1+ LE edema Skin: normal turgor, no lesions, no rashes Neurological: normal sensation to touch, no weakness Musculoskeletal: normal strength (Pain with lifting right leg off bed) Psychiatric: normal affect, normal behavior, A&O x 3, lethargic Hosp A/P (1) Septic arthritis of knee, right Code(s): M00.9 - PYOGENIC ARTHRITIS, UNSPECIFIED Status: Acute Qualifiers: Qualified Code(s): M00.9 - Pyogenic arthritis, unspecified - Plan old records reviewed/req This is 64 year old male admitted for septic arthritis Septic arthritis right knee - s/p I and D, blood cultures - on vancomycin and meropenem. Switched to IV ceftriaxone 02/24. Continue for four weeks. Will need PICC line placement - continue hydrocodone every 4 hours prn - case management consulted for rehab History of heroin abuse - last use 3 weeks ago - HIV negative, hep B and Hep C positive #Hep B positive #Hep C positive #Transaminitis - hep C RNA pending, will need outpatient treatment - will check hep Be antigen levels and HBV DNA to see if patient meets criteria for treatment - AST is downtrending Hypoglycemia Type II Diabetes - continue glipizide dose to 2.5 mg daily. A1C is 6.6 Hyponatremia - sodium 133, stable Anemia - Hb 10, stable Disposition: pending rehab bed, PICC line placement Agree with student note. Patient accepted at rehab today. He received PICC line yesterday. Willl plan on dc tomorrow
[2020-02-27 15:14] LABS: Hep C PCR-Quant HCV Not Detected IU/mL (.)
[2020-02-27 21:11] LABS: GC by PCR Not Detected (NotDetected)
[2020-02-27 21:36] LABS: Hep C PCR-Quant HCV Not Detected IU/mL (.)
[2020-02-27] MEDS ORDERED: cefTRIAXone\\ROCEPHIN 2 GM in Sodium Chloride 0.9% 100 ML IVPB SCH (23:00)
[2020-02-28 07:30] VITALS: BP 159/83; TEMP 97.7
[2020-02-28] MEDS: HYDROcodone/Acetaminophen 10/325 mg Tablet PO PRN (07:57)
[2020-02-28] MEDS: Metoprolol Tartrate 25 MG TAB PO SCH (07:59)
[2020-02-28] MEDS: Lisinopril 5 MG TAB PO SCH (08:00)
[2020-02-28 09:06] LABS: Hemoglobin 9.7 g/dL (14.0-18.0); Mean Corpuscular HGB CONC 31.4 g/dL (32.0-36.0); Mean Corpuscular Hemoglobin 29.9 pg (27.0-31.0); Mean Corpuscular Volume 95.1 fL (78.0-98.0); Mean Platelet Volume 6.6 fL (7.4-10.4); Platelet Count 347 thou/uL (130-400); Red Blood Cell (RBC) Count 3.23 mill/uL (4.70-6.10); White Blood Cell (WBC) Count 5.1 thou/uL (4.8-10.8)
[2020-02-28 09:27] LABS: Anion Gap 11 mmol/L (10-20); BUN (Urea Nitrogen) 21 mg/dL (8.4-25.7); Calc. Creatinine Clearance 100 mL/min (70-130); Calcium 8.3 mg/dL (7.8-10.44); Carbon Dioxide 26 mmol/L (23-31); Chloride 101 mmol/L (98-107); Estimated GFR-MDRD 90; Glucose 149 mg/dL (80-115); Potassium 4.7 mmol/L (3.5-5.1); Sodium 133 mmol/L (136-145)
[2020-02-29 10:15] LABS: HBV as IU/mL See Final Results IU/mL (.)
== END 2020-02-28 10:40 | disposition swing bed (61) | DRG 486 ==
LOC: SURG A 02-22 08:37
PROVIDERS: ADMIT Orthopaedic Surgery; ATTEND Orthopaedic Surgery
PROC: 0S9C0ZZ Drainage of Right Knee Joint, Open Approach (ICD-10-PCS; principal; 2020-02-22)
PROC: 02HV33Z Insertion of Infusion Device into Superior Vena Cava, Percutaneous Approach (ICD-10-PCS; 2020-02-26)
PROC: B518YZA Fluoroscopy of Superior Vena Cava using Other Contrast, Guidance (ICD-10-PCS; 2020-02-26)
PROC: B548ZZA Ultrasonography of Superior Vena Cava, Guidance (ICD-10-PCS; 2020-02-26)
DX: M00.9 Pyogenic arthritis, unspecified (principal); Z16.23 Resistance to quinolones and fluoroquinolones; E87.1 Hypo-osmolality and hyponatremia; B19.10 Unspecified viral hepatitis B without hepatic coma; I10 Essential (primary) hypertension; E78.00 Pure hypercholesterolemia, unspecified; I25.10 Atherosclerotic heart disease of native coronary artery without angina pectoris; E78.5 Hyperlipidemia, unspecified; D64.9 Anemia, unspecified; I08.0 Rheumatic disorders of both mitral and aortic valves; B19.20 Unspecified viral hepatitis C without hepatic coma; F11.11 Opioid abuse, in remission; E11.649 Type 2 diabetes mellitus with hypoglycemia without coma; Z95.5 Presence of coronary angioplasty implant and graft; Z91.14 Patient's other noncompliance with medication regimen; Z87.440 Personal history of urinary (tract) infections
CPT/HCPCS: 36415; 36416; 36569; 71046; 80048; 80053; 80076; 82565; 83036; 84132; 84295; 84550; 85014; 85018; 85025; 85027; 85060; 86140; 86706; 86780; 86803; 87040; 87070; 87205; 87340; 87350; 87389; 87517; 87522; 87591; 87635; 89051; 93005; 93306; C1751; J0360; J0692; J0696; J1644; J1885; J2001; J2185; J2370; J2405; J2543; J2550; J2704; J3010; J3370; J3490; J7050; Q9967; U0003

== ENCOUNTER 2020-02-21 11:39 | Outpatient (CLI) | payer MEDICARE, OTHER ==
--- NOTE | 2020-02-21 14:19 | RAD ---
TWO VIEW CHEST: 02/21/20 INDICATIONS: Preop evaluation. Lung brown are clear. Heart and mediastinum appear normal. Slight curvature of the thoracic spine wi th convexity to the right. Mild degenerative changes in the spine. IMPRESSION: No acute lung process. POS: AGW
[2020-02-21 14:57] LABS: #Eosinphils 0.1 thou/uL (0.0-0.7); #Lymphocytes 1.7 thou/uL (1.20-3.40); #Monocytes 0.6 thou/uL (0.11-0.59); #Neutrophils 4.8 thou/uL (1.40-6.50); %Basophils 0.6 % (0.0-1.0); %Eosinophils 1.4 % (0.0-10.0); %Lymphocytes 23.8 % (21.0-51.0); %Neutrophils 66.2 % (42.0-75.0); Hemoglobin 11.4 g/dL (14.0-18.0); Mean Corpuscular HGB CONC 31.3 g/dL (32.0-36.0); Mean Corpuscular Hemoglobin 30.7 pg (27.0-31.0); Mean Platelet Volume 6.8 fL (7.4-10.4); Platelet Count 364 thou/uL (130-400); RBC Distribution Width 12.1 % (11.5-14.5); Red Blood Cell (RBC) Count 3.71 mill/uL (4.70-6.10); White Blood Cell (WBC) Count 7.3 thou/uL (4.8-10.8)
[2020-02-21 15:16] LABS: Anion Gap 10 mmol/L (10-20); BUN (Urea Nitrogen) 15 mg/dL (8.4-25.7); Calc. Creatinine Clearance 0 mL/min (70-130); Calcium 8.3 mg/dL (7.8-10.44); Carbon Dioxide 25 mmol/L (23-31); Chloride 102 mmol/L (98-107); Estimated GFR-MDRD 73; Glucose 214 mg/dL (80-115); Potassium 3.7 mmol/L (3.5-5.1); Sodium 133 mmol/L (136-145)
[2020-02-22 11:02] LABS: SARS-CoV-2 MS2 Positive; SARS-CoV-2 N Gene Negative; SARS-CoV-2 S Gene Negative; SARS-CoV-2 orf1ab Negative
== END 2020-02-21 11:40 | disposition home or self-care (01) ==
LOC: LABBT 11:39
PROVIDERS: ATTEND Orthopaedic Surgery
DX: Z01.812 Encounter for preprocedural laboratory examination (principal); Z11.59 Encounter for screening for other viral diseases
CPT/HCPCS: 71046; 80048; 85025; 85060; 87070; 87205; 87635; 89051; 93005; 93010; U0003